=== PATIENT | male | born 1975 | race Caucasian/White ===

== ENCOUNTER 2018-01-10 04:58 | Emergency (ER) | payer OTHER ==
[~2018-01-10] VITALS: Ht 188 cm; Wt 72.6 kg
--- NOTE | 2018-01-10 05:07 | ED GENERAL ADULT ---
History of Present Illness General Chief Complaint: Foot or Ankle Injury Stated Complaint: L ANKLE INJURY, JUMPING OFF A BENCH Source: patient Exam Limitations: no limitations Vital Signs & Intake/Output Vital Signs & Intake/Output Vital Signs Date Time Temp Pulse Resp B/P B/P Pulse O2 O2 Flow FiO2 Mean Ox Delivery Rate 01/10 0749 98.3 73 20 114/55 96 Room Air 01/10 0503 109 28 127/83 98 Allergies Coded Allergies: No Known Allergies (01/10/18) Triage Note: PER PT JUMPED OFF BENCH 5 HRS ALPINE GUIDE CO PAIN TO L ANKLE FOOT TOOK ADVIL 45 MINUTES ALPINE GUIDE LATERAL MALLEOLUS SWOLLEN Triage Nurses Notes Reviewed? yes Onset: Abrupt Duration: hour(s): Timing: single episode today HPI: 42-year-old man with no reported past medical history seen for evaluation of left foot pain. Patient was reportedly in his normal state of health this evening when he was at his friend's restaurant adjusting the volume on the television standing on a bench when he jumped off and "landed on his foot wrong ". He did not otherwise fall, hit his head, or sustain any other injuries. Because he felt like he "broke his foot". He came to the [facility] for evaluation. He otherwise denies any headache, fever, chills, chest pain, shortness of breath, abdominal pain. (Caleb Mays DO) Reconcile Medications Diclofenac Sodium 75 MG TABLET.DR 1 TAB PO BID PRN PAIN Oxycodone HCl/Acetaminophen (Percocet 5-325 MG Tablet) 5 MG-325 MG TABLET 1-2 TAB PO 4 TIMES/DAY PRN foot pain (Maryana HYATT,Caleb Boone) Past History Travel History Traveled to [place] past 21 day No Medical History Any Pertinent Medical History? see below for history Neurological: NONE EENT: NONE Cardiovascular: NONE Respiratory: NONE Gastrointestinal: NONE Hepatic: NONE Renal: NONE Musculoskeletal: NONE Psychiatric: NONE Endocrine: NONE Surgical History Surgical History: none Psychosocial History What is your primary language Dutch Tobacco Use: Current Daily Use Daily Tobacco Use Amount/Type: => 5 Cigarettes daily Family History Hx Contributory? No (Caleb Mays DO) Review of Systems Review of Systems Constitutional: Reports: no symptoms. EENTM: Reports: no symptoms. Respiratory: Reports: no symptoms. Cardiovascular: Reports: no symptoms. GI: Reports: no symptoms. Genitourinary: Reports: no symptoms. Musculoskeletal: Reports: joint pain (Left foot), joint swelling, muscle pain. Skin: Reports: no symptoms. Neurological/Psychological: Reports: no symptoms. Hematologic/Endocrine: Reports: no symptoms. Immunologic/Allergic: Reports: no symptoms. (Caleb Mays DO) Physical Exam Physical Exam General Appearance: well developed/nourished, no apparent distress, alert, awake , anxious Head: atraumatic, normal appearance Eyes: Bilateral: normal appearance, PERRL, EOMI. Ears, Nose, Throat: normal pharynx, normal ENT inspection Neck: normal inspection, supple, full range of motion Respiratory: normal breath sounds, no respiratory distress, quiet respiration Cardiovascular: regular rate/rhythm Peripheral Pulses: 4+ radial (R), 4+ radial (L) Gastrointestinal: soft, non-tender (.) Back: normal inspection, normal range of motion Extremities: Left foot/ankle has mild swelling with moderate tenderness without gross deformity, sensation, strenghth, pulses intact. Neurologic/Psych: no motor/sensory deficits, awake, alert, oriented x 3 Core Measures ACS in differential dx? No CVA/TIA Diagnosis: No Sepsis Present: No Sepsis Focused Exam Completed? No (Caleb Mays DO) Progress Differential Diagnoses I considered the following diagnoses in my evaluation of the patient: Ankle sprain, ligamentous tear, fracture, mechanical fall Plan of Care: Orders Procedure Date/time Status Durable Medical Equipment 01/10 733 Active Current Medications Sig/Elisabeth Start time Last Medication Dose Stop Time Status Admin Morphine Sulfate 2 MG Q4P PRN 01/10 730 AC (MORPHINE SULFATE) Ketorolac 60 MG ONCE ONE 01/10 630 CAN Tromethamine 01/10 631 (Toradol) Oxycodone/ 1 TAB ONCE ONE 01/10 630 CAN Acetaminophen 01/10 631 (Percocet) Initial ED EKG: none (Caleb Mays DO) Differential Diagnoses I considered the following diagnoses in my evaluation of the patient: Comments: 01/10/2018 8:17:40 AM patient signed out to me by Dr. Mays at shift place change roof bolter. Currently the patient has been splinted and has crutches and feels improved enough to go home. (Maryana HYATT,Caleb Boone) Departure Departure Condition: Stable Departure Forms: Customer Survey General Discharge Information Comments The patient was treated with IV morphine for pain control. The films were reviewed and the case was discussed with Leroy Julian MD, who is in agreement with the plan. Large bulky posterior splint. Analgesics follow-up with him tomorrow. The patient was signed out to Dr. Mijares at 7 AM reevaluate and likely discharge if pain is well-controlled., (Davon BACK,Caleb Godwin) Departure Disposition: HOME OR SELF CARE Clinical Impression Primary Impression: Calcaneal fracture Qualifiers: Encounter type: initial encounter Calcaneus location: unspecified portion of calcaneus Fracture type: closed Laterality: left Referrals: Eliel HYATT,Leroy Additional Instructions: Ice and elevation over the next 48 hours. Do not bear weight on your left foot and use crutches when ambulating. Keep the splint in place at all times. Diclofenac as needed for pain. Add Percocet if necessary. Follow-up with Dr. Julian on Thursday return if any concerns or sudden worsening. Please note that there might be incidental findings in your evaluation that are unrelated to the current emergency department visit. Please notify your primary care doctor about this emergency department visit in order to obtain and review all of the testing performed so that these incidental findings can be monitored as needed. If you had an x-ray performed, please understand that some fractures or other findings may not be seen on the initial set of x-rays. If your symptoms persist you might need a repeat set of x-rays to check for such a fracture. If you had a laceration evaluated, please understand that foreign bodies such as glass or wood may not be visible to the naked eye or on plain x-rays. If the wound becomes red, swollen, increasingly more painful or if there is any drainage from the wound, please have it reevaluated by a physician for the possibility of a retained foreign body. If you're unable to follow up as outlined in the discharge instructions please return to the emergency department. Thank you for choosing the [facility] Emergency Department for your care. It was a pleasure to serve you today. Caleb Mijares M.D. [facility] . Prescriptions: Current Visit Scripts Diclofenac Sodium 1 TAB PO BID PRN PAIN #20 TAB Oxycodone HCl/Acetaminophen (Percocet 5-325 MG Tablet) 1-2 TAB PO 4 TIMES/DAY PRN foot pain #30 TAB (Maryana HYATT,Caleb Boone) Critical Care Note Critical Care Note Critical Care Time: non-applicable (Caleb Mays DO) Critical Care Note Critical Care Time: 30-74 min (Maryana HYATT,Caleb Boone)
--- NOTE | 2018-01-10 06:22 | RADIOLOGY REPORT ---
EXAMINATION: XR LEFT ANKLE, LEFT FOOT CLINICAL INFORMATION: Pain after jump COMPARISON: None TECHNIQUE: 3 views of the left ankle. 4 views of the left foot. FINDINGS: Left ankle: Alignment across the ankle is anatomic. The distal tibia and fibula appear intact. Lateral soft tissue swelling is noted. There is a mildly depressed calcaneal body fracture. Left foot: There is a mildly displaced calcaneal fracture with partial loss of height. Fracture line is seen extending to the posterior calcaneal surface as well as to the calcaneocuboid articulation. Articular alignment throughout the foot appears preserved. No additional definite acute fracture is seen. IMPRESSION: 1. Mildly displaced calcaneal fracture with partial loss of height. Fracture line extends to the calcaneocuboid articulation. 2. Lateral soft tissue swelling at the ankle.
[2018-01-10 07:49] VITALS: BP 114/55
[2018-01-10] MEDS ORDERED: DICLOFENAC SODI75 M2 PO (08:12)
[2018-01-10] MEDS ORDERED: PERCOCET 5-3251 EACH PO (08:12)
== END 2018-01-10 08:27 ==
LOC: ERH 04:58
DX: S92.002A Unspecified fracture of left calcaneus, initial encounter for closed fracture (principal); X58.XXXA Exposure to other specified factors, initial encounter; Y93.89 Activity, other specified
CPT/HCPCS: 73610-LT; 73630-LT; 96374; 96375; 96376; J1885